=== PATIENT | female | born 1955 | race African-American/Black ===

== ENCOUNTER → 2019-04-20 | Outpatient (CLI) | payer BC ==
[~2019-04-20] VITALS: Ht 236.2 cm; Wt 129.7 kg
[~2019-04-20] MED LIST: BAYER CHEWABLE81 MG PO; CLARITIN10 MG PO; FLUTICASONE PRO16 GM NASAL; HAIR, SKIN & N1 EAC1 PO; LASIX 40 MG TAB40 M2 PO; LIPITOR 20 MG T20 M1 PO; MEDROLDOSEPACK PO; METFORMIN HCL1000 MG PO; NEURONTIN 300300 M1 PO; NORVASC5 MG PO; OMEPRAZOLE40 MG PO; PIOGLITAZONE15 MG; QUINAPRIL HCL40 MG PO; TYLENOL325 MG PO
--- NOTE | ~2019-04-20 | HPC ---
[facility] [address] [place] [address] PAIN MANAGEMENT CONSULTATION Name: KAYLIN CALVERT Room #: REG KATHIE PadillaCelsoBaldemarCelso#: [id number] Admission: 04/20/19 ������������������ Attend Phys: Oumou Huertas MD Discharge: ������������������ Date of : 59 Report #: [id number] THIS REPORT FOR: //name// CC: Shasta Huertas DATE OF SERVICE: 04/20/2019 The patient was seen in the pain clinic. CHIEF COMPLAINT: Sciatic pain. HISTORY OF PRESENT ILLNESS: The patient is a 64-year-old female who has been referred to the pain clinic for evaluation. She has noticed a worsening of her pain since 10/2018. She has perceived weakness in her legs. There is a numbness and tingling sensation from her hip down into her foot. She notes this 24 hours a day. Pain is worse when she is sitting and notes that exacerbated when going from a sitting to a standing position. Lying for too longer period of time can be problematic as well. Notes that her pain is better when she is constantly moving. Describes her pain as continuous, periodic, intermittent, transient, burning, shooting, cramping, gnawing, throbbing, sharp. The patient notes some pain and discomfort when she is climbing stairs. Stepping off curbs can be problematic. Walking up inclines is problematic. Feels that there is a wobbly weakness in her lower extremities. Rates her pain as a 15/10. ALLERGIES: No known drug allergies. CURRENT MEDICATIONS: Tylenol 325 one p.o. q. 6 hours p.r.n., multivitamin with minerals, Nature's Bounty, aspirin 81 mg, Claritin 10 mg, omeprazole 40 mg, Actos 15 mg, metformin 1000 mg, quinapril 40 mg, amlodipine 5 mg, Lasix 40 mg. PAST MEDICAL HISTORY: Hypertension, GERD, endometriosis, carpal tunnel syndrome, type 2 diabetes. PAST SURGICAL HISTORY: ____ oophorectomy in 1984, left and right carpal tunnel release in 2000; at 2005, degenerative changes C5 through T1, multilevel foraminal surgery. 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 She is working at this juncture. REVIEW OF SYSTEMS: Generally good health, weight changes, night sweats, wears glasses, numbness and tingling sensation and diabetes, non-insulin. LABORATORY DATA: No laboratory values are available [place] [address] PAIN MANAGEMENT CONSULTATION Name: KAYLIN CALVERT Room #: REG KATHIE OlsenCelso#: [id number] Admission: 04/20/19 ������������������ Attend Phys: Oumou Huertas MD Discharge: ������������������ Date of : 59 Report #: [id number] PAIN CLINIC ASSESSMENT AND PQRS: 1. History of osteoarthritis, left lower extremity and right lower extremity. The patient is not being treated for rheumatoid arthritis. 2. Height 5 feet 3 inches, weight 286 pounds, BMI is 23.3. 3. VITAL SIGNS: Blood pressure 177/95, pulse 80, respiratory rate 18, room air saturation is 100%. 4. Pain intensity 10/10. 5. Fall risk. The patient has not fallen in the last 3 months. 6. Blood thinner. The patient is not on a blood thinning medication. 7. Hypertension. The patient has been treated for hypertension. 8. Opioids greater than 6 weeks. The patient is not on regular opioid regimen. 9. Risk assessment tool, low for opioid use. 10. Functional assessment tool, . 11. Recreational drug use. The patient denies. 12. Tobacco: The patient has never smoked. 13. Alcohol: The patient denies frequent use of alcoholic beverages. PHYSICAL EXAMINATION: GENERAL: The patient is a well-developed, well-nourished black female. Appears her stated age. She is alert and oriented x 3. Affect is appropriate. Speech is fluent. HEENT: Normocephalic, atraumatic. Extraocular eye muscles intact. Sclerae nonicteric. Mucous membranes are moist. NECK: Without adenopathy or JVD. HEART: Regular rate. LUNGS: Clear to auscultation. ABDOMEN: Nontender, protuberant. Bowel sounds present. EXTREMITIES: Upper extremity muscle strength is judged to be 5-/5 for the major muscle groups. Deep tendon reflexes are +3 for biceps and +1 for brachioradialis. Absent at the triceps. MUSCULOSKELETAL: The patient has had pain and discomfort that is radiating down to the left leg. Anterior and posterior spring tests are negative. Deep tendon reflexes are +1 at the knees. Ankle reflexes are absent. The patient is able to stand on her heels and toes. Left and right lateral leaning were not very problematic. Left and right lateral rotation cause some increased pain in the low back area. The patient has pain that is radiating down into her left leg with discomfort and tightness in the L5-S1 dermatomal distribution. IMPRESSION: 1. Sciatic nerve irritation. 2. Hypertension. 3. Gastroesophageal reflux disease. 4. Endometriosis. 5. Carpal tunnel syndrome. 6. Type 2 diabetes. [facility] [address] [place] [address] PAIN MANAGEMENT CONSULTATION Name: KAYLIN CALVERT Room #: REG CLSanna Quiros#: [id number] Admission: 04/20/19 ������������������ Attend Phys: Oumou Huertas MD Discharge: ������������������ Date of : 59 Report #: [id number] RECOMMENDATIONS: We discussed treatment options with the patient. At this juncture, we will try a conservative approach. The patient has not tried a steroid treatment. We will try a Medrol Dosepak. The patient will take it as prescribed. We will also try gabapentin 300 mg 1 p.o. t.i.d. A gradual increase in this medication has been provided to the patient over the next few days. She will try these medications. Hopefully, she will find that her pain continues to improve. Should her pain continue to be problematic with pain radiating down the leg, we will then consider an epidural steroid injection to help quell the sciatic pain she is experiencing. We would like to thank you for letting us participate in her care. We hope she continues to improve. She will call us if she has any concerns with the gabapentin medication or the Medrol Dosepak. The patient does have diabetes history. She will monitor her blood sugars. Should her blood sugars become elevated, she will contact her primary for instructions on helping to normalize her blood sugars. ��������������������������������������������� ���������������������������������������� By: ��������������������������������������������� 1918 9 Oumou Huertas MD /NEGRITO
[2019-04-20 14:34] VITALS: BP 177/95
--- NOTE | 2019-04-20 15:11 | NUR ---
Pain Clinic Assessment: 1. History of Osteoarthritis: Left Lower Extremity Right Lower Extremity History of Rheumatoid Arthritis: Not Applicable 2. Height: 5 ft. 33 in. 236.2 cm. Weight: 286.0 lb. oz. 129.729 kg. Patient's BMI: 23.3 3. Vital Signs: BP: 177/95 Pulse: 80 Resp: 18 Temp: 02 Sat: 100 ECG Mon: 4. Pain Intensity: 10 5. Fall Risk: Dizziness: N Needs help standing or walking: N Fallen in the last 3 months: Y Fall risk comments: 6. Patient on Blood Thinner: None 7. History of Hypertension: Y 8. Opioid Therapy greater than 6 weeks: N Opiate Contract Signed: 9. Risk Assessment Tool Provided: 10. Functional Assessment Tool: 11. Recreational Drug Use: Never Drug Type: Tobacco Use: Never Smoker Tobacco Type: Amount or Packs/day: How Many Years: Alcohol Use: No Frequency: Quant:
== END ==
LOC: PAIN 07:07
DX: G57.00 Lesion of sciatic nerve, unspecified lower limb (principal); I10 Essential (primary) hypertension; I21.9 Acute myocardial infarction, unspecified; E11.9 Type 2 diabetes mellitus without complications; N80.9 Endometriosis, unspecified; G56.00 Carpal tunnel syndrome, unspecified upper limb

== ENCOUNTER 2019-05-02 00:22 | Inpatient (IN) | payer BC ==
[2019-05-02] VITALS (8 sets, daily range): BP systolic 104–197; BP diastolic 50–101
[~2019-05-02] VITALS: Ht 160 cm; Wt 122.8 kg
[2019-05-02] MEDS ORDERED: TOPROL XL25 MG PO (01:00)
[2019-05-02] MEDS ORDERED: FLONASE 0.05%50 MCG NASAL (01:00)
[2019-05-02 01:06] LABS: ABSOLUTE NEUTROPHILS 6.8 thou/uL (1.4-8.2); BASOPHILS 0.3 % (0.0-2.0); EOSINOPHILS 2.3 % (0.0-3.0); HEMATOCRIT 38.4 % (37.0-47.0); HEMOGLOBIN 12.6 gm/dL (12.0-15.0); LYMPHOCYTES 13.7 % (24.0-44.0); MCH 26.5 pg (26.0-34.0); MCHC 32.7 g/dL (28.0-37.0); MONOCYTES 7.2 % (1.0-8.0); PLATELET COUNT 198 thou/uL (150-400); POLYS 76.5 % (36.0-66.0); RBC 4.74 mil/uL (4.20-5.00); RDW 16.2 % (10.5-14.5); WBC 8.9 thou/uL (4.0-11.0)
[2019-05-02 01:09] LABS: CALCIUM 9.9 mg/dL (8.5-10.1)
[2019-05-02 01:18] LABS: TROPONIN-I 0.25 ng/mL (<0.06)
[2019-05-02 01:23] LABS: URINE BILIRUBIN NEGATIVE (Negative); URINE BLOOD NEGATIVE (Negative); URINE CLARITY CLEAR; URINE COLOR YELLOW; URINE GLUCOSE-RANDOM* NEGATIVE (Negative); URINE KETONES NEGATIVE (Negative); URINE LEUKOCYTES-REFLEX NEGATIVE (Negative); URINE NITRITE-REFLEX NEGATIVE (Negative); URINE PROTEIN (DIPSTICK) 2+ (Negative); URINE SPECIFIC GRAVITY 1.025 (1.005-1.035); URINE UROBILINOGEN 0.2 E.U./dl (0.2-1.0)
--- NOTE | 2019-05-02 01:25 | EKG ---
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 : 1955 Requested By: Benjamin Wilder Order Number: [id number] MD: Kevin Fenton Measurements Intervals [place] Rate: 78 P: 53 RI: 176 QRS: -2 QRSD: 107 T: 58 QT: 389 QTc: 444 Interpretive Statements Sinus rhythm left atrial enlargement NS ST/T wave changes No previous ECG available for comparison Electronically Signed On 05-02-2019 1:25:41 CDT by Kevin Fenton [email or web address] ��������������������������������������������� <ELECTRONICALLY SIGNED> ���������������������������������������� By: Kevin Fenton MD ��������������������������������������������� 05/02/19 0125 0033 0033 Kevin Fenton MD /AUDI
[2019-05-02 01:54] LABS: CASTS None Seen /LPF (None Seen); MUCUS None Seen strn/LPF (None Seen); SQUAMOUS 0-3 Few /LPF (0-3)
[2019-05-02 01:56] LABS: BACTERIA-REFLEX None Seen /HPF (None Seen); CRYSTALS None Seen /LPF (None Seen); URINE RBC None Seen /HPF (0-2); URINE WBC-REFLEX None Seen /HPF (0-5)
[2019-05-02 08:18] LABS: CALCIUM 8.8 mg/dL (8.5-10.1); CREATININE 1.7 mg/dL (0.6-1.0); POTASSIUM 3.7 mmol/L (3.5-5.1)
[2019-05-02 09:45] LABS: FOLIC ACID 19.9 ng/mL (8.6-58.9); TSH 2.704 uIU/mL (0.358-3.740)
--- NOTE | 2019-05-02 14:40 | 2DMMODE ---
[facility] [address] [place] [address] 2 D/M-MODE ECHOCARDIOGRAM Name: JASPREET DREKAYLNI Room #: 215-P ADM IN M.R.#: [id number] ������������� Admission: 05/02/19 ������������� Attend Phys: Sherrie Glass Discharge: ��� ������������� ��� Date of : 59 Date of Service: 05/02/19 1440 �� Report #: [id number] �������� ��������������������������������������������[id number] THIS REPORT FOR: //name// APPROVED REPORT Study performed: 05/02/2019 13:36:08 EXAM: Comprehensive 2D, Doppler, and color-flow Echocardiogram Patient Location: Bedside Room #: [facility] Status: routine BSA: 2.18 HR: 62 bpm BP: 117/52 mmHg Other Information Study Quality: Adequate Indications Diabetes Elevated Troponin Hypertension/HDD 2D Dimensions RVDd: 41.06 mm IVSd: 13.28 (7-11mm) LVOT Diam: 20.02 (18-24mm) LVDd: 40.26 mm PWd: 14.43 (7-11mm) Ascending Ao: 29.63 (22-36mm) LVDs: 28.84 (25-40mm) Aortic Root: 27.17 mm IVC: 22.00 mm Volumes Left Atrial Volume (Systole) Single Plane 4CH: 86.80 mL Single Plane 2CH: 59.97 mL LA ESV Index: 36.00 mL/m2 Aortic Valve AoV Peak Flo.: 1.50 m/s AO Peak Gr.: 9.05 mmHg LVOT Max P.74 mmHg LVOT Max V: 0.97 m/s MAU Vmax: 2.02 cm2 Mitral Valve E/A Ratio: 1.4 MV Decel. Time: 275.90 ms [facility] [address] [address] 2 D/M-MODE ECHOCARDIOGRAM Name: KAYLIN CALVERT Room #: 215-P [facility]#: [id number] ������������� Admission: 05/02/19 ������������� Attend Phys: Sherrie Glass Discharge: ��� ������������� ��� Date of : 59 Date of Service: 05/02/19 1440 �� Report #: [id number] �������� ��������������������������������������������[id number] MV E Max Flo.: 1.14 m/s MV A Lfo.: 0.81 m/s MV PHT: 80.01 ms IVRT: 78.43 ms Pulmonary Valve PV Peak Flo.: 0.90 m/s PV Peak Gr.: 3.23 mmHg Pulmonary Vein P Vein S: 0.39 m/s P Vein A: 0.21 m/s P Vein D: 0.37 m/s P Vein A Dur.: 124.6 msec P Vein S/D Ratio: 1.05 Tricuspid Valve TR Peak Flo.: 2.51 m/s TR Peak Gr.: 25.26 mmHg PA Pressure: 35.00 mmHg Left Ventricle The left ventricle is normal size. There is normal LV segmental wall motion. Mild concentric left ventricular hypertrophy. The left ventricular systolic function is normal. The left ventricular ejection fraction is within the normal range. LVEF is 55-60%. Right Ventricle The right ventricle is normal size. The right ventricular systolic function is normal. Atria Left atrium is dilated. Right atrium is at the upper limits of normal. Aortic Valve The aortic valve is normal in structure. No aortic regurgitation is present. There is no aortic valvular stenosis. Mitral Valve The mitral valve is normal in structure. Trace mitral regurgitation. No evidence of mitral valve stenosis. Tricuspid Valve The tricuspid valve is normal in structure. Trace to mild tricuspid regurgitation. Pulmonic Valve The pulmonary valve is normal in structure. There is no pulmonic [facility] [address] [place] [address] 2 D/M-MODE ECHOCARDIOGRAM Name: KAYLIN CALVERT Room #: 215-P [facility] IN M.R.#: [id number] ������������� Admission: 05/02/19 ������������� Attend Phys: Sherrie Glass Discharge: ��� ������������� ��� Date of : 59 Date of Service: 05/02/19 1440 �� Report #: [id number] �������� ��������������������������������������������[id number] valvular regurgitation. Great Vessels The aortic root is normal in size. IVC is dilated and collapses >50% with inspiration. Pericardium There is no pericardial effusion. <Conclusion> The left ventricle is normal size. Mild concentric left ventricular hypertrophy. The left ventricular systolic function is normal. The right ventricle is normal size. Left atrium is dilated. The aortic valve is normal in structure. Trace mitral regurgitation. Trace to mild tricuspid regurgitation. ��������������������������������������������� <ELECTRONICALLY SIGNED> ���������������������������������������� By: Zac Lawler MD ��������������������������������������������� 05/02/19 1440 1440 1440 Zac Lawler MD /INF
[2019-05-03 00:14] VITALS: BP 122/64
[2019-05-03 04:51] VITALS: BP 153/90
[2019-05-03 05:40] LABS: ALBUMIN 2.8 g/dL (3.4-5.0); CALCIUM 8.8 mg/dL (8.5-10.1); CREATININE 1.7 mg/dL (0.6-1.0); PHOSPHORUS 3.6 mg/dL (2.5-4.9); POTASSIUM 4.6 mmol/L (3.5-5.1)
--- NOTE | 2019-05-03 08:17 | HC ---
[facility] [place] [address] [place] [address] CONSULTATION Name: KAYLIN CALVERT Room #: 215-P ADM IN M.R.#: [id number] Admission: 05/02/19 ������������������ Attend Phys: Sherrie Rossi Discharge: ������������������ Date of : 59 Report #: [id number] THIS REPORT FOR: //name// CC: Sherrie Jordan DATE OF SERVICE: 05/02/2019 CARDIOLOGY CONSULTATION INDICATION: Troponin abnormality. HISTORY OF PRESENT ILLNESS: This is a 64-year-old female, with a history of diabetes mellitus, hypertension, DJD, sciatica, obesity, presenting with weakness and falls. Over the weekend, she has fallen while standing, reports that her legs give out. She has had issues with sciatica and is followed at the pain clinic. She is yet to see a neurologist. She has been receiving treatment for her sciatica with PT and steroids. She falls and has found it difficult to get up. Part of the problem may be related to her conditioning and weight. She offers no complaints of angina, dyspnea, diaphoresis or lightheadedness prior to the event. We are asked to evaluate the patient due to an elevated troponin level. PAST MEDICAL HISTORY: Diabetes mellitus, hypertension, family history for coronary artery disease, father had an ID, obesity, chronic back pains, sciatica, previous neck surgery. ALLERGIES: None. MEDICATIONS: At home include Toprol-XL 50 mg daily, Lasix 40 mg, amlodipine 5 mg, quinapril 40 mg, metformin, omeprazole, Actos, aspirin. SOCIAL HISTORY: Denies tobacco use. FAMILY HISTORY: Positive for coronary artery disease, father with an ID in his 60s. REVIEW OF SYSTEMS: A full 10-point review of systems performed. Only the pertinent positives and negatives are described in the HPI. PHYSICAL EXAMINATION: VITAL SIGNS: Blood pressure is 124/70, heart rate is 60 beats per minute. GENERAL APPEARANCE: An overweight female, in no acute distress. HEENT: Normocephalic, atraumatic. Oral mucosa moist. NECK: Supple. LUNGS: Clear to auscultation. [facility] [address] [place] [address] CONSULTATION Name: JASPREET KELLOGGKAYLIN SANTOS Room #: 215-P [facility] IN M.R.#: [id number] Admission: 05/02/19 ������������������ Attend Phys: Sherrie Rossi Discharge: ������������������ Date of : 59 Report #: [id number] CARDIAC: Regular rate and rhythm, S1, S2 positive. ABDOMEN: Protuberant, soft, nontender. EXTREMITIES: No cyanosis, trace edema. NEUROLOGIC: Alert and oriented x 3. ECG reveals sinus rhythm, otherwise unremarkable. LABORATORY VALUES: Sodium is 141, creatinine initially was 2.0, down to 1.7. Peak troponin 0.37 at this time. Hemoglobin is 12.6. ASSESSMENT AND PLAN: 1. Falls/weakness, probably attributed to issues with her sciatica and chronic back pains. Agree with Neurology evaluation at this time. 2. Troponin elevation, occurring in the setting of falling and inability to get up. Denies any symptoms of chest pains or shortness of breath; however, she has significant coronary artery disease risk factors and will need an evaluation. We discussed the pros and cons of cardiac catheterization versus noninvasive stress testing. Given her size, stress testing may be less specific. The creatinine has improved with holding Lasix and lisinopril, also improved with hydration. We will have renal evaluate prior to considering a cardiac catheterization. Await echocardiogram findings. 3. Hypertension, continue with Norvasc. 4. Diabetes mellitus, continue with medications. Hold metformin. 5. Edema, hold diuretic therapy at this time. ��������������������������������������������� <ELECTRONICALLY SIGNED> ���������������������������������������� By: Zac Lawler MD ��������������������������������������������� 05/03/19 0817 0908 0920 Zac Lawler MD /nt
[2019-05-03 08:43] VITALS: BP 155/116
[2019-05-03 12:26] VITALS: BP 155/76
[2019-05-03 16:27] VITALS: BP 167/66
--- NOTE | 2019-05-03 18:18 | EKG ---
[place] [address] [address] [facility] [place] [address] ELECTROCARDIOGRAM REPORT Name: KAYLIN CALVERT Room #: 215-P ADM IN M.R.#: [id number] ������������������ Admission: 05/02/19 ������������������ Attend Phys: Sherrie Rossi Discharge: ������������������ Date of : 59 Report #: [id number] ����������������������������������������������������������������� [id number] THIS REPORT FOR: //name// 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 : 1955 Requested By: Amarilys Patel Order Number: [id number] MD: Trino Ramirez Measurements Intervals [place] Rate: 59 P: 42 [place]: 183 QRS: -1 QRSD: 109 T: 16 QT: 483 QTc: 479 Interpretive Statements Sinus bradycardia Otherwise no significant abnormality Compared to ECG 05/02/2019 00:33:42 No significant change was found Electronically Signed On 05-03-2019 18:17:54 CDT by Trino Ramirez [email or web address] ��������������������������������������������� <ELECTRONICALLY SIGNED> ���������������������������������������� By: Trino Ramirez MD, [facility] ��������������������������������������������� 05/03/19 1817 4 4 Trino Ramirez MD, [facility] /EPI
[2019-05-03 20:45] VITALS: BP 153/73
[2019-05-04 05:11] LABS: CALCIUM 9.3 mg/dL (8.5-10.1); CREATININE 1.7 mg/dL (0.6-1.0); PHOSPHORUS 3.5 mg/dL (2.5-4.9)
[2019-05-04 06:00] VITALS: BP 180/94
[2019-05-04 07:28] VITALS: BP 170/80
[2019-05-04 07:42] VITALS: BP 184/100
[2019-05-04 10:21] LABS: URINE BILIRUBIN NEGATIVE (Negative); URINE BLOOD NEGATIVE (Negative); URINE CLARITY CLEAR; URINE COLOR YELLOW; URINE GLUCOSE-RANDOM* NEGATIVE (Negative); URINE KETONES NEGATIVE (Negative); URINE LEUKOCYTES NEGATIVE (Negative); URINE NITRITE NEGATIVE (Negative); URINE PROTEIN (DIPSTICK) NEGATIVE (Negative); URINE SPECIFIC GRAVITY <= 1.005 (1.005-1.035); URINE UROBILINOGEN 0.2 E.U./dl (0.2-1.0)
[2019-05-04 10:28] LABS: PROT/CREAT RATIO 0.3; URINE CREATININE-RANDOM* 29.1 mg/dL; URINE PROTEIN-RANDOM* 9.6 mg/dL (<11.9)
[2019-05-04 10:29] LABS: URINE CREATININE-RANDOM* 29.8 mg/dL; URINE PROTEIN-RANDOM* 9.3 mg/dL (<11.9)
[2019-05-04 19:55] VITALS: BP 168/79
[2019-05-05 04:45] VITALS: BP 187/88
[2019-05-05 05:36] LABS: ALBUMIN 3.3 g/dL (3.4-5.0); CALCIUM 9.9 mg/dL (8.5-10.1); CREATININE 1.4 mg/dL (0.6-1.0); PHOSPHORUS 3.3 mg/dL (2.5-4.9); POTASSIUM 4.6 mmol/L (3.5-5.1)
--- NOTE | 2019-05-05 08:06 | HC ---
[facility] [address] [address] CONSULTATION Name: KAYLIN CALVERT Room #: 215-P ADM IN M.R.#: [id number] Admission: 05/02/19 ������������������ Attend Phys: Sherrie Rossi Discharge: ������������������ Date of : 59 Report #: [id number] THIS REPORT FOR: //name// CC: Sherrie Jordan REASON FOR CONSULTATION: Elevated creatinine. HISTORY OF PRESENT ILLNESS: A 64-year-old with 40-year history of diabetes mellitus and hypertension, who presented to the Emergency Room complaining of frequent falls and was found to have spinal stenosis. This has been happening since October. No major trauma. Treating for sciatica with PT, OT and steroids. She was supposed to see her neurologist on 07/31/2019. However, because of the persistent and severe symptoms, she presented for further evaluation and management. She was found to have a mildly elevated troponin. Creatinine on presentation was elevated at 2.0. She does not recall the previous creatinine numbers; however, she was told by her primary care physician that she needs to pay attention to her kidney issues. She is not aware of any diabetic retinopathy. PAST MEDICAL HISTORY: 1. Forty years history of diabetes mellitus. 2. Forty years history of hypertension. 3. Degenerative joint disease. 4. Hyperlipidemia. 5. Ovarian surgery. 6. Multilevel lumbar surgery. MEDICATIONS: 1. Metoprolol. 2. Amlodipine. 3. Metformin. 4. Quinapril. ALLERGIES: None. SOCIAL HISTORY: She denies drug or alcohol abuse. REVIEW OF SYSTEMS: GENERAL: No fever or chills, significant for weakness. CARDIOVASCULAR: Denies chest pain or palpitation. PULMONARY: No cough or hemoptysis. GASTROINTESTINAL: No nausea or vomiting. GENITOURINARY: No frequency, no urgency. MUSCULOSKELETAL: As per the history of present illness. NEUROLOGIC: As per the history of present illness. SKIN: No rashes or ulcerations. [facility] [address] [place] [address] CONSULTATION Name: KAYLIN CALVERT Room #: 215-P [facility].#: [id number] Admission: 05/02/19 ������������������ Attend Phys: Sherrie Rossi Discharge: ������������������ Date of : 59 Report #: [id number] FAMILY HISTORY: Significant for diabetes mellitus. PHYSICAL EXAMINATION: VITAL SIGNS: Blood pressure 150/90. Temperature 36.7. Pulse rate 65. HEAD AND NECK: No jugular venous distention, no bruit, no thyromegaly. CHEST: Clear to auscultation bilaterally. CARDIOVASCULAR: Regular, with no rub detected. ABDOMEN: Soft, nontender with no hepatosplenomegaly. LOWER EXTREMITIES: No edema. NEUROLOGICAL EXAMINATION: No gross deficits. LABORATORY DATA: Laboratory values reviewed. Potassium is 4.6, creatinine is 1.7. Troponin is 0.29. Imaging of her spine revealed severe bilateral foraminal stenosis on the front levels. ASSESSMENT, IMPRESSION AND PLAN: 1. Chronic kidney disease. 2. Diabetes mellitus. 3. Hypertension. 4. Elevated troponin. 5. Ongoing spine issues. 6. This seems to be all chronic kidney disease. I will initiate the appropriate workup for the patient. 7. Cardiology is planning to proceed with the cardiac catheterization. I would wait for the patient to stabilize her numbers for now. I might proceed with an alternative diagnostic plan until the creatinine stabilizes. 8. Need complete evaluation for her chronic kidney disease. 9. Continue to hold metformin. 10. Will need to be initiated on an angiotensin-converting enzyme inhibitor. 11. Spinal stenosis. As per the primary team. ��������������������������������������������� <ELECTRONICALLY SIGNED> ���������������������������������������� By: Lalita Bowden MD ��������������������������������������������� 05/05/19 0806 0841 1123 Lalita Bowden MD /nt
[2019-05-05 08:12] VITALS: BP 158/86
[2019-05-05 11:23] VITALS: BP 177/81
[2019-05-05 16:13] VITALS: BP 193/88
== END 2019-05-05 18:07 | disposition short-term general hospital (02) | DRG 683 ==
LOC: ER 00:22 → 2N 02:52 → EROBS 02:52 → 2N 05:15
PROVIDERS: Emergency Medicine; Hospitalist; Nurse Practitioner Family; ADMIT Hospitalist
DX: N17.9 Acute kidney failure, unspecified (principal); Z68.42 Body mass index [BMI] 45.0-49.9, adult; M48.02 Spinal stenosis, cervical region; G89.29 Other chronic pain; M54.9 Dorsalgia, unspecified; E78.5 Hyperlipidemia, unspecified; N18.9 Chronic kidney disease, unspecified; E66.01 Morbid (severe) obesity due to excess calories; M17.0 Bilateral primary osteoarthritis of knee; E11.22 Type 2 diabetes mellitus with diabetic chronic kidney disease; M54.31 Sciatica, right side; I12.9 Hypertensive chronic kidney disease with stage 1 through stage 4 chronic kidney disease, or unspecified chronic kidney disease; Z82.49 Family history of ischemic heart disease and other diseases of the circulatory system; Z83.3 Family history of diabetes mellitus; Z84.1 Family history of disorders of kidney and ureter; Z79.82 Long term (current) use of aspirin; Z79.899 Other long term (current) drug therapy; W18.39XA Other fall on same level, initial encounter; Y93.89 Activity, other specified; Y92.89 Other specified places as the place of occurrence of the external cause; Y99.8 Other external cause status
CPT/HCPCS: 10081

== ENCOUNTER 2021-10-16 21:44 | Emergency (ER) | payer BC ==
[~2021-10-16] VITALS: Ht 160 cm; Wt 147.4 kg
[~2021-10-16 21:44] MED LIST changes: +FLONASE 0.05%50 MCG NASAL; +TOPROL XL25 MG PO
[2021-10-16] MEDS ORDERED: HYDROCHLOROTHIA25 M1 PO (23:21)
[2021-10-16] MEDS ORDERED: AMOXICILLIN 50500 MG PO (23:23)
[2021-10-17 04:00] VITALS: BP 160/69
== END 2021-10-17 04:00 | disposition home or self-care (01) ==
LOC: ER 21:44
DX: R04.0 Epistaxis (principal); I10 Essential (primary) hypertension; E11.9 Type 2 diabetes mellitus without complications; E66.01 Morbid (severe) obesity due to excess calories; Z98.890 Other specified postprocedural states; Z79.891 Long term (current) use of opiate analgesic; Z79.899 Other long term (current) drug therapy; Z79.1 Long term (current) use of non-steroidal anti-inflammatories (NSAID); Z79.82 Long term (current) use of aspirin; Z68.43 Body mass index [BMI] 50.0-59.9, adult